=== PATIENT | male | born 1975 | race Caucasian/White ===

== ENCOUNTER 2017-04-20 20:04 | Emergency (ER) | payer SELFPAY ==
[~2017-04-20] VITALS: Ht 172.7 cm; Wt 90.7 kg
[~2017-04-20 20:04] MED LIST: FLOMAX0.4 MG PO; PERCOCET 325 MG1 TA2 PO; Zofran4 MG PO
[2017-04-20 22:13] LABS: BASO % 0.3 % (0.0-1.0); EOS # 0.1 10*3/uL (0.0-0.4); EOS % 0.8 % (1.0-4.0); HEMATOCRIT 41.9 % (42.0-52.0); HEMOGLOBIN 13.7 g/dl (14.0-18.0); LYMPH # 2.2 10*3/uL (1.3-4.4); LYMPH % 14.8 % (27.0-41.0); MEAN CELL VOLUME 91.1 fl (80.0-94.0); MEAN CORPUSCULAR HGB 29.8 pg (27.0-31.0); MEAN CORPUSCULAR HGB CONC 32.7 g/dl (33.0-37.0); MEAN PLATELET VOLUME 9.9 fl (9.6-12.3); MONO % 6.6 % (3.0-9.0); NEUT # 11.3 10*3/uL (2.3-7.9); NEUT % 77.2 % (47.0-73.0); PLATELET COUNT AUTOMATED 223 10*3/uL (130-400); RED CELL DISTRI WIDTH 12.6 % (0-14.5); WHITE BLOOD COUNT 14.7 10*3/uL (4.8-10.8)
[2017-04-20 22:31] LABS: ALBUMIN 3.8 gm/dl (3.1-4.5); ALKALINE PHOSPHATASE 59 U/L (45-117); BUN 15 mg/dl (7-24); CHLORIDE 97 mmol/L (98-107); CREATININE 1.14 mg/dL (0.70-1.30); POTASSIUM 3.4 mmol/L (3.5-5.1); SGOT/AST 85 IU/L (3-35); SGPT/ALT 58 U/L (12-78); SODIUM 135 mmol/L (136-145); TOTAL PROTEIN 7.6 gm/dL (6.4-8.2)
[2017-04-20 22:34] LABS: TROPONIN I < 0.015 ng/ml (<0.045)
== END 2017-04-21 00:21 | disposition left against medical advice (07) ==
LOC: ED 20:04
PROVIDERS: Nurse Practitioner Family
DX: M79.662 Pain in left lower leg (principal); F17.200 Nicotine dependence, unspecified, uncomplicated

== ENCOUNTER 2020-03-01 20:10 | Inpatient (IN) | payer OTHER ==
[~2020-03-01] VITALS: Ht 177.8 cm; Wt 101.2 kg
[2020-03-01 20:26] VITALS: BP 140/69
[2020-03-01 21:14] LABS: BASO % 0.8 % (0.0-1.0); EOS % 0.3 % (1.0-4.0); HEMATOCRIT 40.2 % (42.0-52.0); LYMPH # 0.7 10*3/uL (1.3-4.4); LYMPH % 16.8 % (27.0-41.0); MEAN CELL VOLUME 84.5 fl (80.0-94.0); MEAN CORPUSCULAR HGB 28.4 pg (27.0-31.0); MEAN CORPUSCULAR HGB CONC 33.6 g/dl (33.0-37.0); MEAN PLATELET VOLUME 9.5 fl (9.6-12.3); MONO # 0.3 10*3/uL (0.1-1.0); MONO % 7.4 % (3.0-9.0); NEUT # 2.9 10*3/uL (2.3-7.9); NEUT % 74.4 % (47.0-73.0); RED BLOOD COUNT 4.76 10*6/uL (4.50-5.90); RED CELL DISTRI WIDTH 14.6 % (0-14.5); WHITE BLOOD COUNT 3.9 10*3/uL (4.8-10.8)
[2020-03-01 21:22] LABS: PLATELET COUNT AUTOMATED 119 10*3/uL (130-400)
[2020-03-01 21:23] LABS: ACT PARTIAL THROMBO TIME 32.2 SECONDS (20.0-32.1); INTERNATIONAL NORM RATIO 1.2 (2.0-3.5)
[2020-03-01 21:27] LABS: ALBUMIN 3.9 gm/dl (3.1-4.5); ALKALINE PHOSPHATASE 106 U/L (45-117); BUN 8 mg/dl (7-24); CHLORIDE 99 mmol/L (98-107); CREATININE 0.82 mg/dL (0.70-1.30); LIPASE 312 U/L (73-393); SGOT/AST 115 IU/L (3-35); SGPT/ALT 64 U/L (12-78); SODIUM 135 mmol/L (136-145); TOTAL PROTEIN 8.9 gm/dL (6.4-8.2)
[2020-03-01 21:29] LABS: TROPONIN I < 0.015 ng/ml (<0.045)
--- NOTE | 2020-03-01 23:20 | NUR ---
NURSE TO NURSE REPORT GIVEN TO THIS RN AT THIS TIME
[2020-03-01 23:41] VITALS: BP 147/71
[2020-03-02 01:10] VITALS: BP 151/77
--- NOTE | 2020-03-02 01:10 | NUR ---
A 44, admitted to 5E, under the services of SALINA Casillas DO with a diagnosis of N/V/D. Chief complaint is N/V. Patient arrived via bed from ER. Monitor applied. Initial assessment completed. Vital signs taken and recorded. SALINA CASILLAS DO notified of admission to the unit. Orders received. See assessment for past medical history, medications and allergies. Patient oriented to unit. Clothing/patient valuable form completed. SHIRA COOPER
[2020-03-02 01:16] LABS: BILIRUBIN NEGATIVE (NEGATIVE); BLOOD NEGATIVE (NEGATIVE); CLARITY CLEAR (CLEAR); COLOR YELLOW (YELLOW); GLUCOSE NEGATIVE (NEGATIVE); KETONE NEGATIVE (NEGATIVE); LEUKO ESTERASE TRACE (NEGATIVE); NITRITE NEGATIVE (NEGATIVE); PH 8.5 (5.0-9.0); SPECIFIC GRAVITY 1.005 (1.005-1.030)
[2020-03-02 01:17] LABS: URINE AMPHETAMINES < 1000 (1000ng/ml); URINE BARBITURATES > 200 (200ng/ml); URINE BENZODIAZEPINES < 200 (200ng/ml); URINE CANNABINOIDS (THC) < 50 (50ng/ml); URINE COCAINE < 300 (300ng/ml); URINE METHADONE < 300 (300ng/ml); URINE OPIATES < 300 (300ng/ml)
[2020-03-02 01:18] LABS: BACTERIA 1+
[2020-03-02 01:19] LABS: MUCOUS TRACE; URINE PHENCYCLIDINE < 25 (25ng/ml)
--- NOTE | 2020-03-02 01:28 | NUR ---
PATIENT MEDICATED WITH COMFROT MEDICATIONS, SEE EMAR, FOR C/O WITHDRAWAL SYMPTOMS OF ABD DISCOMFORT AND NAUSEA. WILL MONITOR
[2020-03-02] MEDS ORDERED: TRAMADOL HCL50 MG PO (01:35)
--- NOTE | 2020-03-02 01:46 | NUR ---
INFORMED THAT HOME MEDS ARE VERIFIED
--- NOTE | 2020-03-02 03:00 | NUR ---
24 HR chart check completed.
[2020-03-02 03:13] LABS: BASO % 0.6 % (0.0-1.0); EOS % 0.2 % (1.0-4.0); HEMATOCRIT 37.5 % (42.0-52.0); LYMPH # 0.8 10*3/uL (1.3-4.4); LYMPH % 16.4 % (27.0-41.0); MEAN CELL VOLUME 86.2 fl (80.0-94.0); MEAN CORPUSCULAR HGB 28.5 pg (27.0-31.0); MEAN CORPUSCULAR HGB CONC 33.1 g/dl (33.0-37.0); MONO # 0.4 10*3/uL (0.1-1.0); MONO % 8.7 % (3.0-9.0); NEUT # 3.7 10*3/uL (2.3-7.9); NEUT % 73.7 % (47.0-73.0); PLATELET COUNT AUTOMATED 111 10*3/uL (130-400); RED BLOOD COUNT 4.35 10*6/uL (4.50-5.90); RED CELL DISTRI WIDTH 14.6 % (0-14.5)
[2020-03-02 03:21] LABS: INTERNATIONAL NORM RATIO 1.3 (2.0-3.5)
[2020-03-02 03:28] LABS: ALBUMIN 3.4 gm/dl (3.1-4.5); ALKALINE PHOSPHATASE 88 U/L (45-117); BUN 7 mg/dl (7-24); CHLORIDE 105 mmol/L (98-107); CHOLESTEROL 254 mg/dL (<200); CREATININE 0.68 mg/dL (0.70-1.30); HDL CHOLESTEROL 34 mg/dl (40-60); LDL CHOLESTEROL 190 mg/dL (9-159); POTASSIUM 3.1 mmol/L (3.5-5.1); SGOT/AST 103 IU/L (3-35); SGPT/ALT 58 U/L (12-78); SODIUM 138 mmol/L (136-145); TOTAL PROTEIN 7.9 gm/dL (6.4-8.2); TRIGLYCERIDES 148 mg/dl (<150); VLDL CHOLESTEROL 30 mg/dL (6-40)
[2020-03-02 03:33] LABS: THYROID STIM HORMONE (HS) 0.842 uIU/ml (0.358-4.75)
--- NOTE | 2020-03-02 06:46 | NUR ---
CONSULTED FOR POSSIBLE EGD, STATED WILL BE IN TO SEE PATIENT THIS MORNING
[2020-03-02 08:00] VITALS: BP 142/58
--- NOTE | 2020-03-02 08:40 | NUR ---
PT MEDICATED WITH BENTYL PRN FOR ABDOMINAL PAIN
--- NOTE | 2020-03-02 08:59 | NUR ---
TYLENOL GIVEN FOR TEMPORAL TEMPERATURE OF 100.0
[2020-03-02 09:44] VITALS: BP 140/73
--- NOTE | 2020-03-02 09:45 | NUR ---
PATIENT IS GRIMACING AND CLUTCHING HIS LEFT SHOULDER, IS IN DISTRESS, REPORTS LT SHOULDER BURNING PAIN RADIATING DOWN HIS ARM WITH LEFT HAND NUMBNESS, CHEST TIGHTNESS AND NAUSEA STARTING AT 0937, CONSTANT PAIN. OBTAINED THE FOLLOWING VITAL SIGNS: BP 140/73, PULSE 89 AND REGULAR, POX 98% ON ROOM AIR. ENTERED STAT EKG PER POLICY, NOTIFYING RESIDENTS OF THESE FINDINGS.
--- NOTE | 2020-03-02 09:57 | NUR ---
DR. GALVIN NOTIFIED OF PATIENT'S S/S OF CHEST PAIN AND CURRENT VITAL SIGNS, SHE IS ENTERING FURTHER ORDERS.
--- NOTE | 2020-03-02 10:22 | NUR ---
ADMINISTERED PRN IV ZOFRAN FOR NAUSEA AT THIS TIME.
--- NOTE | 2020-03-02 10:30 | NUR ---
PATIENT REPORTS PAIN TO LEFT ARM HAS EASED UP.
--- NOTE | 2020-03-02 11:15 | NUR ---
PRN IV ZOFRAN EFFECTIVE, PER PATIENT.
[2020-03-02 12:00] VITALS: BP 146/68
--- NOTE | 2020-03-02 12:49 | NUR ---
Professor In Family Studies in to talk to patient. Patient states lives at HOME with MOTHER. There are 12 steps in the home. Physician: RODNEY [facility] Home health services: NONE Patient's level of ADLs: INDEPENDENT Patient has working utilities: YES DME: NONE Follow-up physician's appointment after d/c: WILL BE MADE BY HOSPITALIST NURSE DIRECTOR ON DISCHARGE Does patient want to access PORTAL?: NO Discharge plan PT LIVES AT HOME WITH MOTHER AND IS INDEPENDENT IN HIS CARE. DISCUSSED HOME NEEDS ON DISCHARGE WITH PT BUT HE DECLINES ANY AT THIS TIME. WILL CONTINUE TO FOLLOW. PLAN IS TO RETURN HOME WHEN MEDICALLY STABLE. WILL HAVE A RIDE PER PT. . JOSEPHINE GOMEZ
[2020-03-02 16:00] VITALS: BP 132/75
--- NOTE | 2020-03-02 16:36 | NUR ---
PATIENT HAS TEMPERATURE OF 100.5, GAVE PO PRN TYLENOL.
--- NOTE | 2020-03-02 18:01 | NUR ---
PATIENT C/O DIARRHEA, PO IMODIUM X 1 GIVEN ORDERED.
[2020-03-02 20:00] VITALS: BP 139/71
--- NOTE | 2020-03-02 21:03 | NUR ---
PATIENT MEDICATED WITH COMFROT MEDICATIONS, SEE EMAR, FOR C/O WITHDRAWAL SYMPTOMS. WILL CONTINUE TO MONITOR
--- NOTE | 2020-03-02 22:03 | NUR ---
COMFORT MEDICATIONS EFFECTIVE FOR WITH DRAWAL SYMPTOMS
[2020-03-03] VITALS: BP 122/70
--- NOTE | 2020-03-03 03:58 | NUR ---
PATIENT RESTING QUIETLY, NO DISTRESS NOTED. VOICED NO COMPLAINTS. CALL LIGHT WITHIN REACH
[2020-03-03 06:20] LABS: BASO % 0.3 % (0.0-1.0); EOS # 0.1 10*3/uL (0.0-0.4); EOS % 1.5 % (1.0-4.0); HEMATOCRIT 36.7 % (42.0-52.0); LYMPH # 0.9 10*3/uL (1.3-4.4); MEAN CELL VOLUME 87.8 fl (80.0-94.0); MEAN CORPUSCULAR HGB 28.7 pg (27.0-31.0); MEAN CORPUSCULAR HGB CONC 32.7 g/dl (33.0-37.0); MEAN PLATELET VOLUME 9.9 fl (9.6-12.3); MONO # 0.3 10*3/uL (0.1-1.0); MONO % 7.9 % (3.0-9.0); PLATELET COUNT AUTOMATED 96 10*3/uL (130-400); RED BLOOD COUNT 4.18 10*6/uL (4.50-5.90); RED CELL DISTRI WIDTH 14.8 % (0-14.5); WHITE BLOOD COUNT 3.3 10*3/uL (4.8-10.8)
--- NOTE | 2020-03-03 06:21 | NUR ---
PATIENT PROVIDEDWITH COMFORT MEDS, SEE EMAR, FOR C/O WITHDRAWAL SYMTPOMS. WILL MONITOR
[2020-03-03 06:38] LABS: ALBUMIN 3.2 gm/dl (3.1-4.5); BUN 6 mg/dl (7-24); CHLORIDE 107 mmol/L (98-107); CREATININE 0.83 mg/dL (0.70-1.30); LIPASE 258 U/L (73-393); POTASSIUM 3.3 mmol/L (3.5-5.1); SGOT/AST 90 IU/L (3-35); SGPT/ALT 51 U/L (12-78); SODIUM 140 mmol/L (136-145)
[2020-03-03 06:41] LABS: ALKALINE PHOSPHATASE 79 U/L (45-117); TOTAL PROTEIN 7.3 gm/dL (6.4-8.2)
[2020-03-03 08:59] VITALS: BP 138/64
--- NOTE | 2020-03-03 09:00 | NUR ---
PT COMPLAINS OF NAUSEA AFTER EATING, ADMINISTED IV PRN ZOFRAN.
--- NOTE | 2020-03-03 09:55 | NUR ---
PRN IV ZOFRAN EFFECTIVE, PER PATIENT.
--- NOTE | 2020-03-03 10:01 | NUR ---
[facility] ANSWERING SERVICE NOTIFIED OF CONSULT RE: CHRISTINA PAIN.
[2020-03-03 12:00] VITALS: BP 116/66
[2020-03-03 16:00] VITALS: BP 126/69
--- NOTE | 2020-03-03 16:09 | NUR ---
PATIENT COMPLAINS OF ALL OVER GENERALIZED BODY PAIN RATES AT A 9/10. ADMINISTERED PO PRN NORCO.
--- NOTE | 2020-03-03 17:05 | NUR ---
PRN PO NORCO NOT AT ALL EFFECTIVE, PER PATIENT.
--- NOTE | 2020-03-03 17:28 | NUR ---
MEDICATED WITH PRN IV MORPHINE FOR SEVERE BACK/STOMACH AND BODY PAIN AT THIS TIME.
--- NOTE | 2020-03-03 18:22 | NUR ---
PRN IV MORPHINE SOMEWHAT EFFECTIVE, PER PATIENT.
--- NOTE | 2020-03-03 18:40 | NUR ---
PAGING [facility] TO CONFIRM THAT THEY ARE AWARE OF THE CONSULT.
--- NOTE | 2020-03-03 18:42 | NUR ---
PER DR. BLUE, HE IS AWARE OF THE CONSULT AND SAW THE PATIENT TODAY.
[2020-03-03 20:00] VITALS: BP 126/67
--- NOTE | 2020-03-03 21:00 | NUR ---
INNFORMED THAT PATIENT C/O 5 EPISODES OF DIARRHEA. STATED TO PLACED ORDER FOR IMODIUM.
--- NOTE | 2020-03-03 21:35 | NUR ---
PATIENT MEDICATED WITH COMFORT MEDS, SEE EMAR, FOR C/O WITH DRAWAL SYMPTOMS. WILL MONITOR
--- NOTE | 2020-03-03 22:35 | NUR ---
COMFORT MEDS EFFECTIVE
--- NOTE | 2020-03-03 23:33 | NUR ---
PATIENT MEDICATED WITH PO ATIVEN FOR C/O DTs. PATIENT STATES THAT HE TRIES TO GO ASLEEP BUT WAKES UP AND HALLICINATES "THINGS" IN THE AIR BUT GOES AWAY RATHER QUICKLY, NOTED TREMOR TO BUE WHEN HELD OUT. WILL MONITOR
[2020-03-04] VITALS (9 sets, daily range): BP systolic 90–133; BP diastolic 33–70
[2020-03-04 06:19] LABS: BASO % 0.5 % (0.0-1.0); EOS # 0.1 10*3/uL (0.0-0.4); EOS % 1.6 % (1.0-4.0); HEMATOCRIT 36.6 % (42.0-52.0); LYMPH # 1.2 10*3/uL (1.3-4.4); LYMPH % 27.3 % (27.0-41.0); MEAN CELL VOLUME 88.2 fl (80.0-94.0); MEAN CORPUSCULAR HGB 28.4 pg (27.0-31.0); MEAN CORPUSCULAR HGB CONC 32.2 g/dl (33.0-37.0); MEAN PLATELET VOLUME 9.9 fl (9.6-12.3); MONO # 0.3 10*3/uL (0.1-1.0); MONO % 7.5 % (3.0-9.0); NEUT # 2.7 10*3/uL (2.3-7.9); NEUT % 63.1 % (47.0-73.0); PLATELET COUNT AUTOMATED 105 10*3/uL (130-400); RED BLOOD COUNT 4.15 10*6/uL (4.50-5.90); RED CELL DISTRI WIDTH 14.6 % (0-14.5); WHITE BLOOD COUNT 4.3 10*3/uL (4.8-10.8)
[2020-03-04 06:26] LABS: ALBUMIN 3.1 gm/dl (3.1-4.5); BUN 7 mg/dl (7-24); CHLORIDE 108 mmol/L (98-107); LIPASE 203 U/L (73-393); POTASSIUM 3.1 mmol/L (3.5-5.1); SGOT/AST 71 IU/L (3-35); SGPT/ALT 45 U/L (12-78); SODIUM 140 mmol/L (136-145)
[2020-03-04 06:29] LABS: ALKALINE PHOSPHATASE 73 U/L (45-117); CREATININE 0.89 mg/dL (0.70-1.30); TOTAL PROTEIN 7.3 gm/dL (6.4-8.2)
--- NOTE | 2020-03-04 08:05 | NUR ---
Shift chart check completed.
--- NOTE | 2020-03-04 09:00 | NUR ---
case management visits with patient, he states he lives at home with family, he states he will return home when discharged and denies any home needs
--- NOTE | 2020-03-04 10:29 | NUR ---
[facility] SENT WITH IV FLIDS/IV ANTIBIOTIC RUNNING INTO LEFT AC IV
--- NOTE | 2020-03-04 12:45 | NUR ---
not available for echo, curretnly not in room.
--- NOTE | 2020-03-04 12:54 | NUR ---
remain off floor for testing.
--- NOTE | 2020-03-04 13:40 | NUR ---
return from surgery. pt aware of diet order. pt states no needs at this time. vss. blood pressure manual checked, wnl. see vs
--- NOTE | 2020-03-04 16:08 | NUR ---
PT WITH MILD TREMORS, COMPLAIN OF WITHDRAWL SYMPTOMS. LAST DOSE OF PRN PO ATIVAN GIVEN AT THIS TIME. WILL MONITOR FOR EFFECTIVENESS
--- NOTE | 2020-03-04 17:00 | NUR ---
ATIVAN "LUIS EFFECTIVE" PT WITH NO OTHER STATED NEEDS AT THIS TIME
--- NOTE | 2020-03-04 17:13 | NUR ---
IV FLUIDS STOPPED, IV ZOZYN INFUSING.
--- NOTE | 2020-03-04 17:56 | NUR ---
PT COMPLAIN OF HEADACHE, TYLENOL GIVEN
--- NOTE | 2020-03-04 19:40 | NUR ---
24 HOUR CHART CHECK COMPLETE
--- NOTE | 2020-03-04 20:10 | NUR ---
PATIENT ASSESSMENT COMPLETED AT THIS WITHOUT INCIDENT, DENIES ANY CHEST PAIN OR SHORTNESS OF BREATH AT THIS TIME. CONTINUE TO COMPLAIN OF DIAHRREA, WILL CALL PHYSICIAN FOR ORDERS. A&O X3, CALL LIGHT WITHIN REACH WILL CONTINUE TO MONITOR.
--- NOTE | 2020-03-04 23:42 | NUR ---
PRN VISTARIL GIVEN PO AT THIS TIME AT PATIENT REQUEST FOR SLEEP. A&O X3, CALL LIGHT WITHIN REACH. WILL CONTINUE TO MONITOR.
[2020-03-05] VITALS: BP 135/64
--- NOTE | 2020-03-05 02:50 | NUR ---
PATIENT RESTING IN BED AT THIS TIME WATCHING TV, DENIES ANY PAIN, DISTRESS OR NEEDS AT THIS TIME. CALL LIGHT WITHIN REACH, WILL CONTINUE TO MONITOR.
[2020-03-05 06:40] LABS: ALBUMIN 3.5 gm/dl (3.1-4.5); ALKALINE PHOSPHATASE 77 U/L (45-117); BUN 7 mg/dl (7-24); CHLORIDE 107 mmol/L (98-107); CREATININE 0.87 mg/dL (0.70-1.30); POTASSIUM 3.8 mmol/L (3.5-5.1); SGOT/AST 72 IU/L (3-35); SGPT/ALT 49 U/L (12-78); SODIUM 140 mmol/L (136-145); TOTAL PROTEIN 7.3 gm/dL (6.4-8.2)
[2020-03-05 08:00] VITALS: BP 100/48
--- NOTE | 2020-03-05 08:34 | NUR ---
SPOKE TO DR VILLARREAL REGARDING PT REQUESTS FOR PLAN OF CARE. PT UPSET AND DEMANDING "TO KNOW WHATS GOING ON". PT UPDATED ON PLAN OF CARE PER DR VILLARREAL'S REQUEST . PT WILL "NOT BE HAVING CHOLECTOMY AND PT BILIRUBIN ELEVATION IS PRECURSOR TO ALCOHOL INDUCED LIVER DISEASE".NOTIFIED DR ARITA PT REQUESTING TO SEE DR .DR TOLEDO ROUNDING NOW AND WILL TALK TO PT.
--- NOTE | 2020-03-05 10:05 | NUR ---
Patient signed out AMA. Patient encouraged to stay and advised of possible consequences of premature discharge. Physician JUAN J and public message service supervisor NIDIA CABRERA notified. Patient instructed what to do regarding care post-departure from the hospital; emergency phone numbers provided. Patent was accompanied by FRIEND WAITING OUTSIDE PER PT.. GLADYS HARPER
== END 2020-03-05 10:05 | disposition left against medical advice (07) | DRG 872 ==
LOC: ED 20:10 → 5E 22:52 → EDHOLD 22:52 → 5E 23:47
PROVIDERS: Internal Medicine; Physician Assistant; Student in an Organized Health Care Education/Training Program; ADMIT Emergency Medicine
PROC: 0DB68ZX Excision of Stomach, Via Natural or Artificial Opening Endoscopic, Diagnostic (ICD-10-PCS; principal; 2020-03-04)
DX: A41.9 Sepsis, unspecified organism (principal); D61.818 Other pancytopenia; E87.2 Acidosis; E87.1 Hypo-osmolality and hyponatremia; F10.239 Alcohol dependence with withdrawal, unspecified; R65.20 Severe sepsis without septic shock; K52.9 Noninfective gastroenteritis and colitis, unspecified; K57.90 Diverticulosis of intestine, part unspecified, without perforation or abscess without bleeding; R91.8 Other nonspecific abnormal finding of lung field; E87.6 Hypokalemia; K80.70 Calculus of gallbladder and bile duct without cholecystitis without obstruction; R73.9 Hyperglycemia, unspecified; R82.71 Bacteriuria; K27.9 Peptic ulcer, site unspecified, unspecified as acute or chronic, without hemorrhage or perforation; F19.90 Other psychoactive substance use, unspecified, uncomplicated; K21.9 Gastro-esophageal reflux disease without esophagitis; J44.9 Chronic obstructive pulmonary disease, unspecified; K29.20 Alcoholic gastritis without bleeding; N20.0 Calculus of kidney; Z53.29 Procedure and treatment not carried out because of patient's decision for other reasons; Y90.9 Presence of alcohol in blood, level not specified; E66.09 Other obesity due to excess calories; Z82.49 Family history of ischemic heart disease and other diseases of the circulatory system; Z87.891 Personal history of nicotine dependence; Z79.899 Other long term (current) drug therapy; Z68.31 Body mass index [BMI] 31.0-31.9, adult

== ENCOUNTER 2020-03-29 13:33 | Inpatient (IN) | payer OTHER ==
[~2020-03-29] VITALS: Ht 177.8 cm; Wt 104.0 kg
[~2020-03-29 13:33] MED LIST changes: +TRAMADOL HCL50 MG PO
[2020-03-29 15:30] VITALS: BP 127/66
--- NOTE | 2020-03-29 15:30 | NUR ---
Time: 1529 A 44 year old MALE admitted to 5E under services of RUBENS GANDARA DO. Pt. arrived via bed from [place]. Chief complaint: ALCOHOL DETOX. PATIENT ORIENTED WITH FLOOR 5E, PATIENT FORMS COMPLETED, CALL LIGHT SYSTEM DEMONSTRATED AND REVIEWED. ORDERS RECEIVED FROM ROLAND LEVINE. KASSY GREENWOOD
--- NOTE | 2020-03-29 15:56 | NUR ---
ROLAND LEVINE IN TO SEE PATIENT. ORDERS RECEIVED.
[2020-03-29 16:00] VITALS: BP 127/66
[2020-03-29 16:15] LABS: BASO # 0.1 10*3/uL (0.0-0.1); BASO % 0.8 % (0.0-1.0); EOS # 0.1 10*3/uL (0.0-0.4); EOS % 1.5 % (1.0-4.0); HEMATOCRIT 36.4 % (42.0-52.0); LYMPH # 1.1 10*3/uL (1.3-4.4); LYMPH % 18.4 % (27.0-41.0); MEAN CELL VOLUME 88.6 fl (80.0-94.0); MEAN CORPUSCULAR HGB 28.7 pg (27.0-31.0); MEAN CORPUSCULAR HGB CONC 32.4 g/dl (33.0-37.0); MEAN PLATELET VOLUME 9.9 fl (9.6-12.3); MONO # 0.4 10*3/uL (0.1-1.0); MONO % 6.6 % (3.0-9.0); NEUT # 4.3 10*3/uL (2.3-7.9); NEUT % 72.5 % (47.0-73.0); PLATELET COUNT AUTOMATED 123 10*3/uL (130-400); RED BLOOD COUNT 4.11 10*6/uL (4.50-5.90); RED CELL DISTRI WIDTH 15.2 % (0-14.5); WHITE BLOOD COUNT 5.9 10*3/uL (4.8-10.8)
[2020-03-29 16:27] LABS: INTERNATIONAL NORM RATIO 1.2 (2.0-3.5)
--- NOTE | 2020-03-29 16:28 | NUR ---
PATIENT MEETS [facility]. CIWA=19. PATIENT IS WANTING THE VIVITROL SHOT AT [facility] FOR HIS AFTERCARE PLAN. TAMMY LUNA B.A. LIFESTYLE DIRECTOR
[2020-03-29 16:30] LABS: ALBUMIN 3.5 gm/dl (3.1-4.5); ALKALINE PHOSPHATASE 131 U/L (45-117); BUN 9 mg/dl (7-24); CHLORIDE 107 mmol/L (98-107); CREATININE 0.71 mg/dL (0.70-1.30); LIPASE 905 U/L (73-393); POTASSIUM 3.8 mmol/L (3.5-5.1); SGOT/AST 91 IU/L (3-35); SGPT/ALT 42 U/L (12-78); SODIUM 140 mmol/L (136-145)
[2020-03-29 19:22] LABS: BILIRUBIN 2+; BLOOD NEGATIVE (NEGATIVE); CLARITY CLEAR (CLEAR); COLOR YELLOW (YELLOW); GLUCOSE NEGATIVE; KETONE TRACE; LEUKO ESTERASE TRACE (NEGATIVE); NITRITE NEGATIVE (NEGATIVE); SPECIFIC GRAVITY 1.025 (1.005-1.030)
[2020-03-29 19:31] LABS: BACTERIA TRACE; EPITHELIAL CELLS 0-2; MUCOUS TRACE; RBC 0-2 rbc/hpf (0-2); WBC 0-2 wbc/hpf (0-5)
[2020-03-29 20:00] VITALS: BP 136/72
--- NOTE | 2020-03-29 23:05 | NUR ---
PATIENT MEDICATED WITH PRN TYLENOL AND TRAZADONE PER PT REQUEST. PATIENT GIVEN SCHEDULED DOSE OF PO ATIVAN. MILD TREMORS NOTED. PATIENT VOICES NO OTHER COMPLAINTS AT THIS TIME. WILL CONTINUE TO MONITOR.
[2020-03-30] VITALS: BP 140/73
--- NOTE | 2020-03-30 02:08 | NUR ---
PATIENT SLEEPING, NO SIGNS OF DISTRESS. WILL CONTINUE TO MONITOR.
--- NOTE | 2020-03-30 07:56 | NUR ---
PT REQUESTED AND WAS MEDICATED WITH ROBAXIN AND TYLENOL FOR C/O MUSCLE ACHES AND HEADACHE. CALL LIGHT IN REACH. WILL MONITOR.
[2020-03-30 08:00] VITALS: BP 124/55
--- NOTE | 2020-03-30 08:00 | NUR ---
Neurological: awake, alert Respiratory: easy, regular,no distress Breath sounds: clear Cough: none Cardiovascular: tachycardia Gastrointestinal: ABDOMINAL PAIN Genito/Urinary: no problem Musculoskeketal: AMBULATORY ANNIE QUIROGA
--- NOTE | 2020-03-30 08:46 | NUR ---
MEDICATIONS EFFECTIVE PER PT. CALL LIGHT IN REACH. WILL MONITOR
--- NOTE | 2020-03-30 10:26 | NUR ---
PT REQUESTED AND WAS MEDICATED WITH VISTRIL FOR C/O ANXIETY AND MOTRIN FOR C/O HEADACHE. CALL LIGHT IN REACH. WILL MONITOR
--- NOTE | 2020-03-30 11:15 | NUR ---
MEDICATIONS EFFECTIVE PER PT. CALL LIGHT IN REACH. WILL MONITOR
[2020-03-30 12:00] VITALS: BP 141/69
--- NOTE | 2020-03-30 14:16 | NUR ---
HAVING TREMORS AND COLD SWEAT. NOT DUE FOR PRN MED NOW SPOKE TO AND HE STATED TO GIVE PRN DOSE PO NOW.
--- NOTE | 2020-03-30 15:00 | NUR ---
ATIVAN EFFECTIVE PER PT. CALL LIGHT IN REACH. WILL MONITOR
--- NOTE | 2020-03-30 15:27 | NUR ---
PT REQUESTED AND WAS MEDICATED WITH NICOTINE INHALER PER ORDERS. CALL LIGHT IN REACH. WILL MONITOR
[2020-03-30 16:00] VITALS: BP 136/70
--- NOTE | 2020-03-30 19:43 | NUR ---
PATIENT MEDICATED WITH VISTARIL FOR COMPLAINTS OF ANXIETY. WILL CONTINUE TO MONITOR. CALL LIGHT IN REACH.
[2020-03-30 20:00] VITALS: BP 129/72
[2020-03-31] VITALS: BP 143/75
--- NOTE | 2020-03-31 03:13 | NUR ---
TYLENOL GIVEN PER PT REQUEST
[2020-03-31 08:00] VITALS: BP 120/55
--- NOTE | 2020-03-31 08:00 | NUR ---
Neurological: awake, alert Respiratory: no problem Breath sounds: clear Cough: none Cardiovascular: TACHY AT TIMES Gastrointestinal: soft Genito/Urinary: no problem Musculoskeketal: AMBULATORY ANNIE QUIROGA
[2020-03-31 12:00] VITALS: BP 132/80
[2020-03-31 16:00] VITALS: BP 116/63
--- NOTE | 2020-03-31 16:14 | NUR ---
PT REQUESTED PREPARATION H FOR HEMMORHOIDS. DR GARCIA NOTIFIED. ORDERS RECEIVED.
--- NOTE | 2020-03-31 16:54 | NUR ---
PT REQUESTED AND WAS MEDICATED WITH ATIVAN FOR C/O ANXIETY AND TYLENOL FOR C/O HEADACHE. CALL LIGHT IN REACH. WILL MONITOR
--- NOTE | 2020-03-31 17:30 | NUR ---
MEDICATIONS EFFECTIVE PER PT. WILL MONITOR
[2020-03-31 20:00] VITALS: BP 122/63
[2020-04-01] VITALS: BP 130/67
--- NOTE | 2020-04-01 00:15 | NUR ---
PATIENT MEDICATED WITH TRAZODONE FOR INSOMNIA AND VISTARIL FOR ANXIETY. WILL MONITOR FOR EFFECTIVENESS. CALL LIGHT IN REACH.
--- NOTE | 2020-04-01 01:38 | NUR ---
MEDICATED WITH ATIVAN 1MG FOR COMPLAINTS OF ANXIETY. WILL CONTINUE TO MONITOR.
[2020-04-01 06:29] LABS: BASO % 0.3 % (0.0-1.0); EOS # 0.1 10*3/uL (0.0-0.4); EOS % 1.7 % (1.0-4.0); LYMPH # 1.3 10*3/uL (1.3-4.4); LYMPH % 21.8 % (27.0-41.0); MEAN CELL VOLUME 88.6 fl (80.0-94.0); MEAN CORPUSCULAR HGB 28.6 pg (27.0-31.0); MEAN CORPUSCULAR HGB CONC 32.3 g/dl (33.0-37.0); MEAN PLATELET VOLUME 9.9 fl (9.6-12.3); MONO # 0.4 10*3/uL (0.1-1.0); MONO % 6.6 % (3.0-9.0); NEUT % 69.4 % (47.0-73.0); PLATELET COUNT AUTOMATED 115 10*3/uL (130-400); RED BLOOD COUNT 3.95 10*6/uL (4.50-5.90); RED CELL DISTRI WIDTH 15.5 % (0-14.5); WHITE BLOOD COUNT 5.8 10*3/uL (4.8-10.8)
[2020-04-01 06:35] LABS: CREATININE 0.65 mg/dL (0.70-1.30)
--- NOTE | 2020-04-01 09:12 | NUR ---
Discharge instructions reviewed with patient/family. Patient receptive and verbalizes understanding. Follow-up care arranged. Written instructions given to patient/family. HEP-LOCK REMOVED. CATH INTACT. TELE MONITOR REMOVE AND RETURNED. IN STABLE CONDITION. ANNIE QUIROGA
== END 2020-04-01 09:14 | disposition home or self-care (01) | DRG 897 ==
LOC: 5E 13:33
PROVIDERS: Registered Nurse; ADMIT Internal Medicine; ATTEND Internal Medicine
DX: F10.239 Alcohol dependence with withdrawal, unspecified (principal); F10.29 Alcohol dependence with unspecified alcohol-induced disorder; E66.9 Obesity, unspecified; F41.9 Anxiety disorder, unspecified; J44.9 Chronic obstructive pulmonary disease, unspecified; K80.20 Calculus of gallbladder without cholecystitis without obstruction; R74.0 Nonspecific elevation of levels of transaminase and lactic acid dehydrogenase [LDH]; R73.9 Hyperglycemia, unspecified; R91.1 Solitary pulmonary nodule; Z82.49 Family history of ischemic heart disease and other diseases of the circulatory system; Z68.32 Body mass index [BMI] 32.0-32.9, adult

== ENCOUNTER 2020-05-26 02:38 | Inpatient (IN) | payer OTHER ==
[~2020-05-26] VITALS: Ht 177.8 cm; Wt 108.9 kg
[2020-05-26] VITALS (10 sets, daily range): BP systolic 106–136; BP diastolic 50–67
[2020-05-26 03:34] LABS: BASO % 0.5 % (0.0-1.0); EOS # 0.1 10*3/uL (0.0-0.4); EOS % 0.9 % (1.0-4.0); HEMATOCRIT 32.5 % (42.0-52.0); LYMPH % 12.1 % (27.0-41.0); MEAN CELL VOLUME 84.9 fl (80.0-94.0); MEAN CORPUSCULAR HGB 28.7 pg (27.0-31.0); MEAN CORPUSCULAR HGB CONC 33.8 g/dl (33.0-37.0); MEAN PLATELET VOLUME 9.9 fl (9.6-12.3); MONO # 0.8 10*3/uL (0.1-1.0); MONO % 9.3 % (3.0-9.0); NEUT # 6.6 10*3/uL (2.3-7.9); NEUT % 76.8 % (47.0-73.0); PLATELET COUNT AUTOMATED 110 10*3/uL (130-400); RED BLOOD COUNT 3.83 10*6/uL (4.50-5.90); WHITE BLOOD COUNT 8.5 10*3/uL (4.8-10.8)
[2020-05-26 03:42] LABS: ABG BASE EXCESS 4.1 mmol/L (-2.0-2.0); ARTERIAL BLOOD GAS PH 7.484 (7.35-7.45)
[2020-05-26 03:43] LABS: ACT PARTIAL THROMBO TIME 32.8 SECONDS (20.0-32.1); INTERNATIONAL NORM RATIO 1.5 (2.0-3.5)
[2020-05-26 03:51] LABS: ALBUMIN 3.2 gm/dl (3.1-4.5); ALKALINE PHOSPHATASE 89 U/L (45-117); BUN 5 mg/dl (7-24); CHLORIDE 102 mmol/L (98-107); CREATININE 0.87 mg/dL (0.70-1.30); POTASSIUM 3.6 mmol/L (3.5-5.1); SGOT/AST 65 IU/L (3-35); SGPT/ALT 20 U/L (12-78); SODIUM 137 mmol/L (136-145); TOTAL PROTEIN 7.3 gm/dL (6.4-8.2)
[2020-05-26 03:52] LABS: TROPONIN I < 0.015 ng/ml (<0.045)
[2020-05-26 06:30] LABS: CPK 847 U/L (39-308)
[2020-05-26 06:37] LABS: TROPONIN I < 0.015 ng/ml (<0.045)
[2020-05-26] MEDS ORDERED: TRAMADOL HCL50 MG PO (12:07)
[2020-05-26] MEDS ORDERED: ESCITALOPRAM OX10 MG PO (12:07)
[2020-05-26 12:35] LABS: ABG BASE EXCESS 0.3 mmol/L (-2.0-2.0); ARTERIAL BLOOD GAS PH 7.45 (7.35-7.45)
[2020-05-26 16:26] LABS: ABG BASE EXCESS 0.9 mmol/L (-2.0-2.0); ARTERIAL BLOOD GAS PH 7.478 (7.35-7.45)
[2020-05-26 17:24] LABS: BILIRUBIN Negative (Negative); BLOOD Negative (Negative); CLARITY Clear (Clear); COLOR Dark Yellow (Yellow); GLUCOSE Negative (Negative); KETONE Negative (Negative); LEUKO ESTERASE Negative (Negative); NITRITE Negative (Negative)
[2020-05-26 17:31] LABS: URINE AMPHETAMINES < 1000 (1000ng/ml); URINE BARBITURATES < 200 (200ng/ml); URINE BENZODIAZEPINES < 200 (200ng/ml); URINE CANNABINOIDS (THC) < 50 (50ng/ml); URINE COCAINE < 300 (300ng/ml); URINE METHADONE < 300 (300ng/ml); URINE OPIATES < 300 (300ng/ml)
[2020-05-26 17:32] LABS: URINE PHENCYCLIDINE < 25 (25ng/ml)
[2020-05-26 17:35] LABS: PH 8.5 (4.5-8.0); WBC 0-2 wbc/hpf (0-5)
[2020-05-27] VITALS: BP 138/68
[2020-05-27 04:00] VITALS: BP 111/62
[2020-05-27 05:46] LABS: ALKALINE PHOSPHATASE 105 U/L (45-117); BUN 11 mg/dl (7-24); CHLORIDE 107 mmol/L (98-107); CREATININE 0.74 mg/dL (0.70-1.30); LDH 208 U/L (87-241); SGOT/AST 54 IU/L (3-35); SGPT/ALT 19 U/L (12-78); SODIUM 136 mmol/L (136-145); TOTAL PROTEIN 7.3 gm/dL (6.4-8.2)
[2020-05-27 05:47] LABS: CPK 532 U/L (39-308); POTASSIUM 4.6 mmol/L (3.5-5.1)
[2020-05-27 06:14] LABS: BASO % 0.1 % (0.0-1.0); HEMATOCRIT 34.6 % (42.0-52.0); LYMPH # 0.6 10*3/uL (1.3-4.4); MEAN CORPUSCULAR HGB 29.3 pg (27.0-31.0); MEAN CORPUSCULAR HGB CONC 33.2 g/dl (33.0-37.0); MEAN PLATELET VOLUME 10.7 fl (9.6-12.3); MONO # 0.1 10*3/uL (0.1-1.0); MONO % 1.2 % (3.0-9.0); NEUT # 6.2 10*3/uL (2.3-7.9); PLATELET COUNT AUTOMATED 96 10*3/uL (130-400); RED BLOOD COUNT 3.92 10*6/uL (4.50-5.90); RED CELL DISTRI WIDTH 15.2 % (0-14.5); WHITE BLOOD COUNT 6.9 10*3/uL (4.8-10.8)
[2020-05-27 06:16] LABS: MEAN CELL VOLUME 88.3 fl (80.0-94.0)
[2020-05-27 08:00] VITALS: BP 112/60
[2020-05-27 08:18] LABS: ABG BASE EXCESS 0.9 mmol/L (-2.0-2.0); ARTERIAL BLOOD GAS PH 7.443 (7.35-7.45)
[2020-05-27 12:00] VITALS: BP 115/55
[2020-05-27 16:00] VITALS: BP 116/60
[2020-05-27 20:00] VITALS: BP 120/58
[2020-05-28] VITALS: BP 120/63
[2020-05-28 04:00] VITALS: BP 121/64
[2020-05-28 05:38] LABS: ALBUMIN 3.1 gm/dl (3.1-4.5); ALKALINE PHOSPHATASE 141 U/L (45-117); BUN 15 mg/dl (7-24); CHLORIDE 107 mmol/L (98-107); CREATININE 0.84 mg/dL (0.70-1.30); LDH 189 U/L (87-241); POTASSIUM 4.3 mmol/L (3.5-5.1); SGOT/AST 37 IU/L (3-35); SGPT/ALT 18 U/L (12-78); SODIUM 139 mmol/L (136-145); TOTAL PROTEIN 7.4 gm/dL (6.4-8.2)
[2020-05-28 05:41] LABS: CPK 161 U/L (39-308)
[2020-05-28 05:57] LABS: BASO % 0.1 % (0.0-1.0); HEMATOCRIT 32.7 % (42.0-52.0); LYMPH # 0.9 10*3/uL (1.3-4.4); LYMPH % 7.2 % (27.0-41.0); MEAN CELL VOLUME 89.1 fl (80.0-94.0); MEAN CORPUSCULAR HGB 29.7 pg (27.0-31.0); MEAN CORPUSCULAR HGB CONC 33.3 g/dl (33.0-37.0); MEAN PLATELET VOLUME 10.7 fl (9.6-12.3); MONO # 0.3 10*3/uL (0.1-1.0); MONO % 2.7 % (3.0-9.0); NEUT # 10.8 10*3/uL (2.3-7.9); NEUT % 89.2 % (47.0-73.0); RED BLOOD COUNT 3.67 10*6/uL (4.50-5.90); RED CELL DISTRI WIDTH 15.3 % (0-14.5); WHITE BLOOD COUNT 12.1 10*3/uL (4.8-10.8)
[2020-05-28 05:58] LABS: PLATELET COUNT AUTOMATED 148 10*3/uL (130-400)
[2020-05-28 08:00] VITALS: BP 135/77
[2020-05-28 08:34] LABS: ABG BASE EXCESS 2.4 mmol/L (-2.0-2.0); ARTERIAL BLOOD GAS PH 7.441 (7.35-7.45)
[2020-05-28 12:50] VITALS: BP 145/74
[2020-05-28 17:22] VITALS: BP 142/79
[2020-05-28 20:00] VITALS: BP 149/73
[2020-05-29] VITALS: BP 135/70
[2020-05-29 04:00] VITALS: BP 150/86
[2020-05-29 05:31] LABS: ALBUMIN 3.2 gm/dl (3.1-4.5); ALKALINE PHOSPHATASE 131 U/L (45-117); BUN 14 mg/dl (7-24); CHLORIDE 104 mmol/L (98-107); CREATININE 0.74 mg/dL (0.70-1.30); LDH 186 U/L (87-241); POTASSIUM 4.1 mmol/L (3.5-5.1); SGOT/AST 39 IU/L (3-35); SGPT/ALT 26 U/L (12-78); SODIUM 138 mmol/L (136-145); TOTAL PROTEIN 7.5 gm/dL (6.4-8.2)
[2020-05-29 05:32] LABS: CPK 65 U/L (39-308)
[2020-05-29 05:50] LABS: LYMPH # 0.9 10*3/uL (1.3-4.4); LYMPH % 8.2 % (27.0-41.0); MEAN CELL VOLUME 89.7 fl (80.0-94.0); MEAN CORPUSCULAR HGB 29.2 pg (27.0-31.0); MEAN CORPUSCULAR HGB CONC 32.6 g/dl (33.0-37.0); MEAN PLATELET VOLUME 9.7 fl (9.6-12.3); MONO # 0.2 10*3/uL (0.1-1.0); MONO % 1.6 % (3.0-9.0); NEUT % 89.5 % (47.0-73.0); PLATELET COUNT AUTOMATED 173 10*3/uL (130-400); RED CELL DISTRI WIDTH 15.6 % (0-14.5); WHITE BLOOD COUNT 11.1 10*3/uL (4.8-10.8)
[2020-05-29 08:00] VITALS: BP 126/80
[2020-05-29 08:54] LABS: ABG BASE EXCESS 1.3 mmol/L (-2.0-2.0); ARTERIAL BLOOD GAS PH 7.414 (7.35-7.45)
[2020-05-29 12:00] VITALS: BP 143/77
[2020-05-29 16:00] VITALS: BP 143/83
[2020-05-29 20:00] VITALS: BP 137/86
[2020-05-30] VITALS: BP 148/7; BP 148/77
[2020-05-30 04:00] VITALS: BP 154/86
[2020-05-30 06:32] LABS: HEMATOCRIT 36.3 % (42.0-52.0); LYMPH # 1.1 10*3/uL (1.3-4.4); LYMPH % 11.5 % (27.0-41.0); MEAN CELL VOLUME 87.7 fl (80.0-94.0); MEAN CORPUSCULAR HGB 29.2 pg (27.0-31.0); MEAN CORPUSCULAR HGB CONC 33.3 g/dl (33.0-37.0); MEAN PLATELET VOLUME 9.2 fl (9.6-12.3); MONO # 0.5 10*3/uL (0.1-1.0); NEUT % 82.9 % (47.0-73.0); PLATELET COUNT AUTOMATED 180 10*3/uL (130-400); RED BLOOD COUNT 4.14 10*6/uL (4.50-5.90); RED CELL DISTRI WIDTH 15.2 % (0-14.5); WHITE BLOOD COUNT 9.6 10*3/uL (4.8-10.8)
[2020-05-30 06:40] LABS: ALBUMIN 3.3 gm/dl (3.1-4.5); ALKALINE PHOSPHATASE 113 U/L (45-117); BUN 15 mg/dl (7-24); CHLORIDE 103 mmol/L (98-107); CREATININE 0.72 mg/dL (0.70-1.30); LDH 191 U/L (87-241); POTASSIUM 3.8 mmol/L (3.5-5.1); SGOT/AST 47 IU/L (3-35); SGPT/ALT 34 U/L (12-78); SODIUM 139 mmol/L (136-145); TOTAL PROTEIN 7.7 gm/dL (6.4-8.2)
[2020-05-30 08:00] VITALS: BP 140/85
[2020-05-30] MEDS ORDERED: ZITHROMAX250 MG PO ×2 (11:48)
[2020-05-30] MEDS ORDERED: OMNICEF300 MG PO ×2 (11:48)
== END 2020-05-30 13:02 | disposition home or self-care (01) | DRG 871 ==
LOC: ED 02:38 → EDHOLD 05:31 → ICCU 05:31 → 4E 07:48 → ICCU 12:50
PROVIDERS: Emergency Medicine Emergency Medical Services; Internal Medicine Critical Care Medicine; Student in an Organized Health Care Education/Training Program; ADMIT Student in an Organized Health Care Education/Training Program; ATTEND Student in an Organized Health Care Education/Training Program
PROC: 5A09357 Assistance with Respiratory Ventilation, Less than 24 Consecutive Hours, Continuous Positive Airway Pressure (ICD-10-PCS; principal; 2020-05-26)
PROC: XW033E5 Introduction of Remdesivir Anti-infective into Peripheral Vein, Percutaneous Approach, New Technology Group 5 (ICD-10-PCS; principal; 2020-05-26)
DX: A41.9 Sepsis, unspecified organism (principal); J96.01 Acute respiratory failure with hypoxia; J15.9 Unspecified bacterial pneumonia; E44.0 Moderate protein-calorie malnutrition; D68.9 Coagulation defect, unspecified; J90 Pleural effusion, not elsewhere classified; J44.0 Chronic obstructive pulmonary disease with (acute) lower respiratory infection; D68.69 Other thrombophilia; R65.20 Severe sepsis without septic shock; Z20.828 Contact with and (suspected) exposure to other viral communicable diseases; R73.9 Hyperglycemia, unspecified; E80.6 Other disorders of bilirubin metabolism; D69.6 Thrombocytopenia, unspecified; R91.8 Other nonspecific abnormal finding of lung field; K57.90 Diverticulosis of intestine, part unspecified, without perforation or abscess without bleeding; D64.9 Anemia, unspecified; F32.9 Major depressive disorder, single episode, unspecified; D72.810 Lymphocytopenia; E83.39 Other disorders of phosphorus metabolism; K76.0 Fatty (change of) liver, not elsewhere classified; F41.9 Anxiety disorder, unspecified; R74.01 Elevation of levels of liver transaminase levels; E66.9 Obesity, unspecified; Z68.34 Body mass index [BMI] 34.0-34.9, adult; Z87.891 Personal history of nicotine dependence; Z87.440 Personal history of urinary (tract) infections; Z87.11 Personal history of peptic ulcer disease; Z82.49 Family history of ischemic heart disease and other diseases of the circulatory system; Z84.89 Family history of other specified conditions

== ENCOUNTER 2020-08-10 03:29 | Inpatient (IN) | payer OTHER ==
[~2020-08-10] VITALS: Ht 177.8 cm; Wt 103.9 kg
[~2020-08-10 03:29] MED LIST changes: +ESCITALOPRAM OX10 MG PO; +OMNICEF300 MG PO; +ZITHROMAX250 MG PO
[2020-08-10 03:33] VITALS: BP 140/71
[2020-08-10 04:15] LABS: BASO % 0.1 % (0.0-1.0); EOS % 0.2 % (1.0-4.0); HEMATOCRIT 38.7 % (42.0-52.0); LYMPH # 1.1 10*3/uL (1.3-4.4); LYMPH % 12.4 % (27.0-41.0); MEAN CELL VOLUME 86.6 fl (80.0-94.0); MEAN CORPUSCULAR HGB 29.1 pg (27.0-31.0); MEAN CORPUSCULAR HGB CONC 33.6 g/dl (33.0-37.0); MEAN PLATELET VOLUME 9.5 fl (9.6-12.3); MONO # 0.7 10*3/uL (0.1-1.0); MONO % 7.2 % (3.0-9.0); NEUT # 7.2 10*3/uL (2.3-7.9); NEUT % 79.9 % (47.0-73.0); PLATELET COUNT AUTOMATED 169 10*3/uL (130-400); RED BLOOD COUNT 4.47 10*6/uL (4.50-5.90); RED CELL DISTRI WIDTH 14.2 % (0-14.5); WHITE BLOOD COUNT 9.1 10*3/uL (4.8-10.8)
[2020-08-10 04:30] LABS: ALBUMIN 4.2 gm/dl (3.1-4.5); ALKALINE PHOSPHATASE 87 U/L (45-117); BUN 13 mg/dl (7-24); CHLORIDE 100 mmol/L (98-107); CREATININE 0.88 mg/dL (0.70-1.30); POTASSIUM 3.1 mmol/L (3.5-5.1); SGOT/AST 43 IU/L (3-35); SGPT/ALT 24 U/L (12-78); SODIUM 138 mmol/L (136-145)
[2020-08-10 06:53] LABS: ACT PARTIAL THROMBO TIME 31.1 SECONDS (20.0-32.1); INTERNATIONAL NORM RATIO 1.3 (2.0-3.5)
[2020-08-10 07:00] VITALS: BP 155/78
[2020-08-10 07:04] LABS: FREE T4 1.44 ng/dl (0.76-1.46)
[2020-08-10 07:10] LABS: THYROID STIM HORMONE (HS) 0.231 uIU/ml (0.358-4.75)
--- NOTE | 2020-08-10 07:11 | NUR ---
REPORT RECIEVED FROM JESS BALES
[2020-08-10 07:19] LABS: VITAMIN D, 25-HYDROXY 13.5 ng/mL (30-100)
[2020-08-10 08:27] VITALS: BP 135/76
--- NOTE | 2020-08-10 10:05 | NUR ---
[facility] under [facility] services of MARIVEL Triplett DO with a diagnosis of CO-VID. Chief complaint is SOB. Patient arrived via bed from ER. Monitor applied. Initial assessment completed. Vital signs taken and recorded. MARIVEL TRIPLETT DO notified of admission to the unit. Orders received. See assessment for past medical history, medications and allergies. Patient and/or family oriented to unit. [facility] visitation policy reviewed. Clothing/patient valuable form completed. JUDAH MANUEL
--- NOTE | 2020-08-10 11:49 | NUR ---
FORESTRY SUPERVISOR SPOKE WITH PATIENT VIA PHONE CALL. Patient states lives at HOME with MOTHER. There are 12 steps in the home. Physician: RODNEY [facility] [place] health services: NONE Patient's level of ADLs: INDEPENDENT Patient has working utilities: YES DME: NONE Follow-up physician's appointment after d/c: WILL BE MADE BY HOSPITALIST NURSE DIRECTOR ON DISCHARGE Does patient want to access PORTAL?: NO Discharge plan: FORESTRY SUPERVISOR SPOKE WITH PATIENT VIA PHONE CALL. PATIENT STATES HE RESIDES ALONE. PATIENT REPORTS HE IS INDEPENDENT WITH ADLS/IADLS. PATIENT STATES UPOND DISCHARGE HE WILL RETURN HOME WITH NO NEEDS. HOWEVER, PATIENT IS CURRENTLY ON 5L OF OXYGEN AND DOES NOT USE ANY AT HOME. PATIENT STATES HE WILL HAVE TRANSPORTATION AT DISCHARGE.
[2020-08-10 20:00] VITALS: BP 122/65
--- NOTE | 2020-08-10 21:03 | NUR ---
PT FOUND ON ROOM AIR. SAID HE TOOK O2 OFF ABOUT 20 MINUTES PRIOR. ABG BEING DRAWN AT THIS TIME
[2020-08-10 21:13] LABS: ABG BASE EXCESS 3.9 mmol/L (-2.0-2.0); ARTERIAL BLOOD GAS PH 7.467 (7.35-7.45)
--- NOTE | 2020-08-10 23:00 | NUR ---
24 HR chart check completed.
[2020-08-11] VITALS: BP 110/54
[2020-08-11 06:00] LABS: ALBUMIN 3.4 gm/dl (3.1-4.5); ALKALINE PHOSPHATASE 103 U/L (45-117); BUN 22 mg/dl (7-24); CHLORIDE 97 mmol/L (98-107); CREATININE 0.84 mg/dL (0.70-1.30); SGOT/AST 31 IU/L (3-35); SGPT/ALT 21 U/L (12-78); SODIUM 133 mmol/L (136-145); TOTAL PROTEIN 6.7 gm/dL (6.4-8.2)
[2020-08-11 06:07] LABS: BASO % 0.1 % (0.0-1.0); LYMPH # 0.9 10*3/uL (1.3-4.4); LYMPH % 6.9 % (27.0-41.0); MEAN CELL VOLUME 87.1 fl (80.0-94.0); MEAN CORPUSCULAR HGB 28.4 pg (27.0-31.0); MEAN CORPUSCULAR HGB CONC 32.6 g/dl (33.0-37.0); MEAN PLATELET VOLUME 9.8 fl (9.6-12.3); MONO # 0.5 10*3/uL (0.1-1.0); MONO % 3.5 % (3.0-9.0); NEUT # 11.9 10*3/uL (2.3-7.9); NEUT % 89.2 % (47.0-73.0); PLATELET COUNT AUTOMATED 132 10*3/uL (130-400); RED BLOOD COUNT 4.02 10*6/uL (4.50-5.90); RED CELL DISTRI WIDTH 13.8 % (0-14.5); WHITE BLOOD COUNT 13.3 10*3/uL (4.8-10.8)
[2020-08-11 06:09] LABS: POTASSIUM 4.5 mmol/L (3.5-5.1)
[2020-08-11 08:13] LABS: ABG BASE EXCESS 3.4 mmol/L (-2.0-2.0); ARTERIAL BLOOD GAS PH 7.457 (7.35-7.45)
--- NOTE | 2020-08-11 10:50 | NUR ---
PT ASSESSED FOR HOME O2. PT DID NOT QUALIFY. PRE AMBULATION ON ROOM AIR BP 110/54 HR 66 SPO2 96% DURING AMBULATION ON ROOM AIR HR 72 SPO2 94% POST AMBULATION ON ROOM AIR BP 110/40 HR 77 SPO2 94%
[2020-08-11 12:00] VITALS: BP 107/58
[2020-08-11] MEDS ORDERED: DECADRON6 M1 PO (13:16)
--- NOTE | 2020-08-11 14:16 | NUR ---
PT DISCHARGED HOME AT THIS TIME VIA WHEELCHAIR TO PRIVATE CAR. [employer] PORTAL DEVELOPER DC'D. DISCHARGE INSTRUCTIONS REVIEWED.
== END 2020-08-11 14:16 | disposition home or self-care (01) | DRG 189 ==
LOC: ED 03:29 → EDHOLD 05:35 → 4E 07:53
PROVIDERS: Internal Medicine; Internal Medicine Critical Care Medicine; ADMIT Internal Medicine; ATTEND Internal Medicine
DX: J96.01 Acute respiratory failure with hypoxia (principal); D68.59 Other primary thrombophilia; D64.9 Anemia, unspecified; E87.6 Hypokalemia; K27.9 Peptic ulcer, site unspecified, unspecified as acute or chronic, without hemorrhage or perforation; K57.90 Diverticulosis of intestine, part unspecified, without perforation or abscess without bleeding; J44.9 Chronic obstructive pulmonary disease, unspecified; F10.10 Alcohol abuse, uncomplicated; F19.90 Other psychoactive substance use, unspecified, uncomplicated; F41.9 Anxiety disorder, unspecified; R74.01 Elevation of levels of liver transaminase levels; D72.810 Lymphocytopenia; R73.9 Hyperglycemia, unspecified; E83.39 Other disorders of phosphorus metabolism; E66.9 Obesity, unspecified; Z20.822 Contact with and (suspected) exposure to COVID-19; Z87.891 Personal history of nicotine dependence; Z82.49 Family history of ischemic heart disease and other diseases of the circulatory system; Z84.89 Family history of other specified conditions; Z87.442 Personal history of urinary calculi; Z68.32 Body mass index [BMI] 32.0-32.9, adult